=== PATIENT | female | born 1980 | race Caucasian/White ===

== ENCOUNTER → 2023-09-27 14:49 | Outpatient (REF) | payer OTHER, SELFPAY ==
[2023-09-27 16:12] LABS: Rubella Negative
[2023-09-29 15:53] LABS: Mumps Virus IgG Positive; Rubeola (Measles) IgG Positive; Varicella Zoster IgG (VZV) Positive
== END ==
LOC: OHS 14:49
PROVIDERS: ATTENDING PHYSICIAN Nurse Practitioner Family
DX: Z23 Encounter for immunization (principal)
CPT/HCPCS: 36415; 86735; 86762; 86765; 86787